=== PATIENT | female | born 1970 | race Caucasian/White ===

== ENCOUNTER 2017-11-10 14:30 | Inpatient (IN) | payer OTHER ==
[~2017-11-10] VITALS: Ht 160 cm; Wt 56.7 kg
[2017-11-19] MEDS ORDERED: CIPRO500 MG PO (06:33)
[2017-11-19] MEDS ORDERED: LEVSIN/SL0.125 MG PO (06:33)
[2017-11-19] MEDS ORDERED: OXYC1TAB9 PO (06:33)
== END 2017-11-19 09:32 | disposition home or self-care (01) | DRG 743 ==
LOC: OB/GYN 11-17 08:26 → O/R 11-17 08:26 → OB/GYN 11-17 14:30
PROVIDERS: Obstetrics & Gynecology Gynecology
PROC: 0UT70ZZ Resection of Bilateral Fallopian Tubes, Open Approach (ICD-10-PCS; 2017-11-17)
PROC: 0US20ZZ Reposition Bilateral Ovaries, Open Approach (ICD-10-PCS; 2017-11-17)
PROC: 0UT90ZZ Resection of Uterus, Open Approach (ICD-10-PCS; principal; 2017-11-17 15:30)
DX: D25.1 Intramural leiomyoma of uterus (principal); N72 Inflammatory disease of cervix uteri; I10 Essential (primary) hypertension

== ENCOUNTER → 2024-01-13 | Emergency (ER) | payer OTHER ==
[~2024-01-13] VITALS: Ht 162.6 cm; Wt 59.0 kg
[~2024-01-13] MED LIST: CEFTRIAXONE SODIUM 2,000 MG VIAL IV ONE; CIPRO500 MG PO; KETOROLAC TROMETHAMINE 60 MG VIAL IM STA; LEVSIN/SL0.125 MG PO; MELOXICAM15 MG; OXYC1TAB9 PO
[2024-01-13 15:37] LABS: HEMATOCRIT 40.8 % (36.0-45.00); HEMOGLOBIN 14.1 g/dL (12.0-15.00); MEAN CELL VOLUME 84.9 fL (80.00-100.00); MEAN CORPUSCULAR HEMOGLOBIN 29.4 pg (27.00-32.0); MEAN CORPUSCULAR HGB CONC 34.6 g/dl (32.0-36.0); PLATELET COUNT 293 K/uL (150-450); RED BLOOD COUNT 4.81 M/uL (4.00-6.00); RED CELL DISTRIBUTION WIDTH 13.1 % (11.5-14.5)
[2024-01-13 16:01] LABS: CALCIUM 8.9 mg/dL (8.5-10.1); CREATININE SERUM 0.73 mg/dL (0.55-1.02); GFR 83.39; POTASSIUM 4.07 mEq/L (3.5-5.1)
== END | disposition home or self-care (01) ==
LOC: ER 12:39
PROVIDERS: General Practice
DX: N61.1 Abscess of the breast and nipple (principal); Z20.822 Contact with and (suspected) exposure to COVID-19